=== PATIENT | male | born 1995 | race Caucasian/White ===

== ENCOUNTER 2018-02-08 20:06 | Emergency (ER) | payer BC ==
[~2018-02-08] VITALS: Ht 167.6 cm; Wt 77.3 kg
[2018-02-08 20:13] VITALS: TEMP 98.7
[2018-02-08] MEDS ORDERED: LEXAPRO 10MG10 MG PO (20:16)
[2018-02-08] MEDS ORDERED: PAMELOR 10MG10 MG PO (20:16)
[2018-02-08 22:03] VITALS: BP 146/92; PULSE 84
== END 2018-02-08 22:22 | disposition home or self-care (01) ==
LOC: COL.ER 20:06
DX: S41.112A Laceration without foreign body of left upper arm, initial encounter (principal); G43.909 Migraine, unspecified, not intractable, without status migrainosus; F32.9 Major depressive disorder, single episode, unspecified; X78.8XXA Intentional self-harm by other sharp object, initial encounter; Y92.009 Unspecified place in unspecified non-institutional (private) residence as the place of occurrence of the external cause

== ENCOUNTER 2018-03-23 02:13 | Emergency (ER) | payer BC ==
[~2018-03-23] VITALS: Ht 170.2 cm; Wt 77.3 kg
[~2018-03-23 02:13] MED LIST: LEXAPRO 10MG10 MG PO; PAMELOR 10MG10 MG PO
[2018-03-23 02:19] VITALS: BP 139/86; TEMP 98.1
[2018-03-23 03:30] VITALS: PULSE 69
== END 2018-03-23 03:30 | disposition home or self-care (01) ==
LOC: COL.ER 02:13
DX: G43.909 Migraine, unspecified, not intractable, without status migrainosus (principal); F32.9 Major depressive disorder, single episode, unspecified
CPT/HCPCS: J1200; J1885; J2550